=== PATIENT | male | born 1935 | race Asian ===

== ENCOUNTER 2021-06-08 21:57 | Inpatient (IN) | payer MEDICARE, OTHER ==
[~2021-06-08] VITALS: Ht 165.1 cm; Wt 63.5 kg
[2021-06-08] MEDS ORDERED: IV NORMAL SALINE 1000 ML BAG IV ONE (23:15)
[2021-06-08 23:45] LABS: HEMATOCRIT 21.5 % (36.7-47.1); MEAN CORPUSCULAR HEMOGLOBIN 30.3 uug (23.8-33.4); MEAN CORPUSCULAR VOLUME 92.1 fL (73.0-96.2); PLATELET COUNT (AUTO) 136 K/uL (152-348)
[2021-06-08 23:56] LABS: CARBON DIOXIDE 33 mmol/L (21-32); CHLORIDE 106 mmol/L (98-107); CREATININE 2.3 mg/dL (0.6-1.3); GLUCOSE 62 mg/dL (74-106); POTASSIUM 3.7 mmol/L (3.5-5.1); UREA NITROGEN, BLOOD 28 mg/dL (7-18)
[2021-06-09 00:02] LABS: ALANINE AMINOTRANSFERASE 112 U/L (16-63); ALKALINE PHOSPHATASE 104 U/L (50-136); ASPARTATE AMINOTRANSFERASE 93 U/L (15-37); BILIRUBIN,TOTAL 1.3 mg/dL (0.2-1.0); TOTAL PROTEIN, SERUM 5.8 g/dL (6.4-8.2)
[2021-06-09] MEDS ORDERED: ASPIRIN 81 MG TAB.CHEW PO ONE (02:00)
[2021-06-09 02:19] LABS: *BILIRUBIN,URIN NEGATIVE (NEGATIVE); *CLARITY,URINE CLEAR (CLEAR); *COLOR,URINE YELLOW (YELLOW); *KETONES,URINE NEGATIVE (NEGATIVE); LEUKOCYTE ESTERASE ,URINE NEGATIVE (NEGATIVE); NITRITE, URINE NEGATIVE (NEGATIVE); UGLUCOSE NEGATIVE (NEGATIVE)
[2021-06-09 02:22] LABS: *BLOOD, URINE TRACE (NEGATIVE)
[2021-06-09 02:27] LABS: BACTERIA,URINE NONE SEEN /HPF (NONE SEEN); SQUAMOUS EPITHELIAL CELL,UR FEW /HPF (NONE SEEN); WBC,URINE 0-3 /HPF (0-3)
[2021-06-09] MEDS ORDERED: METO25TA6 PO (02:46)
[2021-06-09] MEDS ORDERED: [UNRECOGNIZED DRUG - CODE] PO (02:46)
[2021-06-09] MEDS ORDERED: LEVO75TA7 PO (02:46)
[2021-06-09] MEDS ORDERED: BUDE10.2 INH (02:46)
[2021-06-09] MEDS ORDERED: LIDO30AD10 TD (02:46)
[2021-06-09] MEDS ORDERED: PROCTO-MED PR (02:46)
[2021-06-09] MEDS ORDERED: NYST5ORA PO (02:46)
[2021-06-09] MEDS ORDERED: ESCI10TA PO (02:46)
[2021-06-09] MEDS ORDERED: CALC-1310 PO (02:46)
[2021-06-09] MEDS ORDERED: ASPI81TA31 PO (02:46)
[2021-06-09] MEDS ORDERED: OMAL150V SQ (02:46)
[2021-06-09] MEDS ORDERED: ENOX40DI SQ (02:46)
[2021-06-09] MEDS ORDERED: hydroxyzine PO (02:46)
[2021-06-09] MEDS ORDERED: RIVA20TA PO (02:46)
[2021-06-09] MEDS ORDERED: OMEP40CA21 PO (02:46)
[2021-06-09] MEDS ORDERED: CHOL200013 (02:46)
[2021-06-09] MEDS ORDERED: ONDA-104 PO (02:46)
[2021-06-09] MEDS ORDERED: CARB1DRO OP (02:46)
[2021-06-09] MEDS ORDERED: CETI-90 PO (02:46)
[2021-06-09] MEDS ORDERED: POLY17PO4 PO (02:46)
[2021-06-09] MEDS ORDERED: CYCL30DR OP (02:46)
[2021-06-09] MEDS ORDERED: ATOR20TA PO (02:46)
[2021-06-09] MEDS ORDERED: LOSA25TA27 PO (02:46)
[2021-06-09] MEDS ORDERED: HYDR-3972 PO (02:46)
[2021-06-09] MEDS ORDERED: FLUT16SP16 NS (02:46)
[2021-06-09] MEDS ORDERED: DEXA0.5E PO (02:46)
[2021-06-09] MEDS ORDERED: AMYL1CAP58 PO (02:46)
[2021-06-09] MEDS ORDERED: PANT40TA49 PO (02:46)
[2021-06-09] MEDS ORDERED: ASPIRIN 81 MG TAB.CHEW ONE (02:55)
[2021-06-09] MEDS ORDERED: IV NS 1000 ML 1,000 ML IV ONE (03:30)
[2021-06-09] MEDS ORDERED: MAGNESIUM HYDROXIDE 30 ML LIQUID UDC PO PRN (03:30)
[2021-06-09] MEDS ORDERED: Z GUARD REMEDY PASTE 57 GM TUBE TOP PRN (03:30)
[2021-06-09] MEDS ORDERED: ACETAMINOPHEN 325 MG TABLET PO PRN (03:30)
[2021-06-09] MEDS ORDERED: ONDANSETRON 4 MG/2 ML VIAL IV PRN (03:30)
[2021-06-09] MEDS ORDERED: VANCOMYCIN IV 1,250 MG in IV DEXTROSE 5% 250 ML IV ONE (04:30)
[2021-06-09] MEDS ORDERED: PIPERACILLIN SODIUM/TAZOBACTAM 3.375 G in IV DEXTROSE 5% 50 ML IV ONE (04:30)
[2021-06-09] MEDS ORDERED: VANCOMYCIN 1000 MG VIAL ONE (05:05)
[2021-06-09] MEDS ORDERED: VANCOMYCIN HCL 500 MG VIAL ONE (05:05)
[2021-06-09] MEDS ORDERED: PIPERACILLIN/TAZOBACTAM/D5W 50 ML IV ONE (05:05)
[2021-06-09 09:02] LABS: CARBON DIOXIDE 32 mmol/L (21-32); CHLORIDE 106 mmol/L (98-107); CREATININE 2.1 mg/dL (0.6-1.3); GLUCOSE 69 mg/dL (74-106); MAGNESIUM 1.9 mg/dL (1.8-2.4); PHOSPHOROUS 3.7 mg/dL (2.5-4.9); POTASSIUM 3.4 mmol/L (3.5-5.1); UREA NITROGEN, BLOOD 30 mg/dL (7-18)
[2021-06-09 09:12] LABS: MEAN CORPUSCULAR HEMOGLOBIN 30.7 uug (23.8-33.4)
[2021-06-09 09:14] LABS: HEMATOCRIT 22.1 % (36.7-47.1); MEAN CORPUSCULAR VOLUME 92.4 fL (73.0-96.2); PLATELET COUNT (AUTO) 127 K/uL (152-348)
[2021-06-09 09:41] LABS: CHOLESTEROL 103 mg/dL (<200); HDL CHOLESTEROL 26 mg/dL (40-60); TRIGLYCERIDES 67 MG/DL (30-150)
[2021-06-09] MEDS ORDERED: IV D5/ 0.9% NACL 1,000 ML IV PRN (10:45)
[2021-06-09] MEDS ORDERED: POTASSIUM CHLORIDE 20 MEQ TAB.PRT.SR PO ONE (11:30)
[2021-06-09] MEDS: PIPERACILLIN SODIUM/TAZOBACTAM 3.375 G in IV DEXTROSE 5% 50 ML IV SCH ×3 (12:00→23:14)
[2021-06-09] MEDS ORDERED: POTASSIUM CHLORIDE 20 MEQ TAB.PRT.SR ONE (13:41)
[2021-06-09 16:00] VITALS: BP 106/56
--- NOTE | 2021-06-09 18:59 | NUR ---
admitted patient to telemetry accompanied by dtr dx. acute respiratory distress. sinus rhythm with first deg av block. no resp distress. spo2 99% on 4 Lpm nasal cannula. able to understand simple setswana. per randy webber who spoke with dtr, ok to intubate but no compressions. pt presents with very fragile skin, bilateral upper extremities bruising and multiple skin tears. routine admission done. pt is put on air loss mattress. kept comfortable. bed at lowest and locked siderails up x2. needs attended. endorsed. randy webber aware.
[2021-06-09 20:17] VITALS: BP 121/64
[2021-06-10 00:06] VITALS: BP 125/60
[2021-06-10 04:13] VITALS: BP 130/75
[2021-06-10] MEDS: PIPERACILLIN SODIUM/TAZOBACTAM 3.375 G in IV DEXTROSE 5% 50 ML IV SCH ×4 (05:13→23:38)
[2021-06-10 08:08] LABS: HEMATOCRIT 22.1 % (36.7-47.1); MEAN CORPUSCULAR HEMOGLOBIN 30.8 uug (23.8-33.4); MEAN CORPUSCULAR VOLUME 92.8 fL (73.0-96.2); PLATELET COUNT (AUTO) 147 K/uL (152-348)
[2021-06-10 08:40] LABS: CARBON DIOXIDE 32 mmol/L (21-32); CHLORIDE 108 mmol/L (98-107); GLUCOSE 74 mg/dL (74-106); MAGNESIUM 1.9 mg/dL (1.8-2.4); PHOSPHOROUS 2.9 mg/dL (2.5-4.9); POTASSIUM 3.9 mmol/L (3.5-5.1); UREA NITROGEN, BLOOD 26 mg/dL (7-18)
[2021-06-10] MEDS: FUROSEMIDE 20 MG/2 ML VIAL IV SCH (10:16)
[2021-06-10 12:00] VITALS: BP 114/60
[2021-06-10] MEDS ORDERED: VANCOMYCIN IV 500 MG in IV DEXTROSE 5% 100 ML IV SCH (12:00)
[2021-06-10 16:00] VITALS: BP 114/63
[2021-06-10] MEDS ORDERED: CETIRIZINE HCL 10 MG TABLET PO SCH (17:00)
[2021-06-10] MEDS: DOCUSATE SODIUM 250 MG CAPSULE PO SCH (17:04)
[2021-06-10 20:00] VITALS: BP 112/61
[2021-06-11] VITALS: BP 116/62
[2021-06-11 04:00] VITALS: BP 116/64
--- NOTE | 2021-06-11 06:06 | NUR ---
Slept intermittently throughout the night. No distress noted. Sinus loren on monitor. Denies pain or SOB. No other issues or concerns at this time, will endorse to day shift.
[2021-06-11 06:21] LABS: HEMATOCRIT 24.8 % (36.7-47.1); MEAN CORPUSCULAR HEMOGLOBIN 30.5 uug (23.8-33.4); MEAN CORPUSCULAR VOLUME 93.7 fL (73.0-96.2); PLATELET COUNT (AUTO) 156 K/uL (152-348)
[2021-06-11] MEDS: PIPERACILLIN SODIUM/TAZOBACTAM 3.375 G in IV DEXTROSE 5% 50 ML IV SCH ×4 (06:26→23:29)
[2021-06-11] MEDS: LEVOTHYROXINE SODIUM 75 MCG TABLET PO SCH (06:26)
[2021-06-11 06:27] LABS: CARBON DIOXIDE 32 mmol/L (21-32); CHLORIDE 108 mmol/L (98-107); CREATININE 1.9 mg/dL (0.6-1.3); GLUCOSE 90 mg/dL (74-106); POTASSIUM 3.9 mmol/L (3.5-5.1); UREA NITROGEN, BLOOD 22 mg/dL (7-18)
[2021-06-11 06:28] LABS: MAGNESIUM 1.9 mg/dL (1.8-2.4); PHOSPHOROUS 2.6 mg/dL (2.5-4.9)
[2021-06-11] MEDS: CALCIUM CARBONATE 600 MG TABLET PO SCH (08:07)
[2021-06-11] MEDS: PANTOPRAZOLE SODIUM 40 MG TABLET.DR PO SCH (08:07)
[2021-06-11] MEDS: CETIRIZINE HCL 10 MG TABLET PO SCH (08:07)
[2021-06-11] MEDS: DOCUSATE SODIUM 250 MG CAPSULE PO SCH ×2 (08:07→16:17)
[2021-06-11] MEDS: MIRALAX 17 GM POWD.PACK PO SCH (08:07)
[2021-06-11] MEDS: ESCITALOPRAM OXALATE 10 MG TABLET PO SCH (08:07)
[2021-06-11] MEDS: FUROSEMIDE 20 MG/2 ML VIAL IV SCH (08:12)
[2021-06-11 11:23] VITALS: BP 96/48
[2021-06-11] MEDS ORDERED: VANCOMYCIN IV 750 MG in IV DEXTROSE 5% 250 ML IV SCH (12:00)
--- NOTE | 2021-06-11 12:24 | NUR ---
WOUND CARE CONSULT: REVIEWED CHART, NURSING DOCUMENTATION AND PHOTOS WHICH INDICATE LEFT UPPER BACK SKIN TEAR, FRAGILE SKIN, DISCOLORATION TO EXTREMITIES, CALLUSES/SCARS TO FEET, RASH TO SACRAL/BUTTOCKS AREA WELL GROIN FOLDS AND PERINEUM, PRESENT ON ADMISSION. RECOMMENDATIONS MADE FOR SKIN PROTECTION AND WOUND CARE. DISCUSSED WITH NURSING STAFF. MD IN AGREEMENT WITH PLAN OF CARE.
--- NOTE | 2021-06-11 15:00 | NUR ---
paracentesis done by radiologist doc 1500 litter blood color out .send the fluids to lab
[2021-06-11] MEDS: CLOTRIMAZOLE 1% CREAM 30 GM TUBE TOP SCH (16:17)
[2021-06-11 16:21] VITALS: BP 110/60
[2021-06-11 20:20] VITALS: BP 102/57
[2021-06-12 00:15] VITALS: BP 127/62
[2021-06-12 04:25] VITALS: BP 102/33
--- NOTE | 2021-06-12 05:24 | NUR ---
Slept throughout the night. No distress noted. Pt desatted to 85% on 2L. Placed on 3L, satting at 93%. IV site intact. Sinus loren on Tele. No other issues or concerns at this time, will endorse to day shift.
[2021-06-12] MEDS: LEVOTHYROXINE SODIUM 75 MCG TABLET PO SCH (06:11)
[2021-06-12] MEDS: PIPERACILLIN SODIUM/TAZOBACTAM 3.375 G in IV DEXTROSE 5% 50 ML IV SCH ×3 (06:12→18:06)
[2021-06-12 08:17] LABS: HEMATOCRIT 23.1 % (36.7-47.1); MEAN CORPUSCULAR HEMOGLOBIN 30.6 uug (23.8-33.4); MEAN CORPUSCULAR VOLUME 93.5 fL (73.0-96.2); PLATELET COUNT (AUTO) 143 K/uL (152-348)
[2021-06-12 08:22] LABS: CARBON DIOXIDE 36 mmol/L (21-32); CHLORIDE 110 mmol/L (98-107); GLUCOSE 75 mg/dL (74-106); PHOSPHOROUS 3.2 mg/dL (2.5-4.9); POTASSIUM 4.2 mmol/L (3.5-5.1); UREA NITROGEN, BLOOD 24 mg/dL (7-18)
[2021-06-12 08:52] LABS: *OCCULT BLOOD STOOL NEGATIVE (NEGATIVE)
[2021-06-12] MEDS: MIRALAX 17 GM POWD.PACK PO SCH (09:00)
[2021-06-12] MEDS: DOCUSATE SODIUM 250 MG CAPSULE PO SCH ×2 (09:00→16:34)
[2021-06-12 09:45] VITALS: BP 110/61
[2021-06-12] MEDS: PANTOPRAZOLE SODIUM 40 MG TABLET.DR PO SCH (09:59)
[2021-06-12] MEDS: ESCITALOPRAM OXALATE 10 MG TABLET PO SCH (09:59)
[2021-06-12] MEDS: FUROSEMIDE 20 MG TABLET PO SCH (09:59)
[2021-06-12] MEDS: CETIRIZINE HCL 10 MG TABLET PO SCH (09:59)
[2021-06-12] MEDS: CALCIUM CARBONATE 600 MG TABLET PO SCH (09:59)
[2021-06-12] MEDS: CLOTRIMAZOLE 1% CREAM 30 GM TUBE TOP SCH ×2 (10:00→16:34)
--- NOTE | 2021-06-12 11:32 | NUR ---
Pt is a/o x 2. He is able to communicate when he needs a diaper change. Pt is cooperative with care and medications. Medications given to pt crushed into applesauce. Colace and Miralax were held this am due to pt having loose stool. Slight redness still present in groin folds, lotrimin has been applied. Pt's vitals are stable within normal limits no signs of acute distress or discomfort at this time. will continue to monitor.
[2021-06-12 12:02] VITALS: BP 105/61
[2021-06-12] MEDS ORDERED: VANCOMYCIN IV 1,000 MG in IV DEXTROSE 5% 250 ML IV SCH (13:00)
[2021-06-12 16:24] VITALS: BP 106/57
--- NOTE | 2021-06-12 18:49 | NUR ---
Pt is intermittently awake. Alert/oriented to own ability, speaks very little [place],. I spoke with daughters Magy and Sloane today and they were able to tell me his preferences in spacing out his meals. Notified MANUAL LATHE MACHINIST to leave certain items for pt to snack on later. Pt's dentures were washed and brushed and placed in his mouth prior to meals. Pt is cooperative with care and medications. All PO medications given crushed into applesauce. IV access is patent and intact. Comfort measures provided, call light in reach. No signs of acute distress or discomfort. Will endorse pt to shift commander RN.
[2021-06-12 19:56] VITALS: BP 91/57
--- NOTE | 2021-06-12 20:00 | NUR ---
RECEIVED PATIENT ASLEEP IN BED. EASILY AROUSABLE AND ALERT. ON O2 3L NC SATING 95%. NO S/S OF ANY PAIN OR DISCOMFORT. NO S/S OF ANY RESP. DISTRESS. CALL LIGHT IN REACH. BED ALARM ON. ALL NEED ATTENDED. WILL CONTINUE TO MONITOR AND ASSESS.
--- NOTE | 2021-06-12 21:07 | NUR ---
PATIENT ON TELE SR WITH 1ST DEGREE AV BLOCK. ALL NEEDS ATTENDED. WILL CONTINUE TO MONITOR AND ASSESS.
[2021-06-13 00:25] VITALS: BP 106/56
[2021-06-13] MEDS: PIPERACILLIN SODIUM/TAZOBACTAM 3.375 G in IV DEXTROSE 5% 50 ML IV SCH ×2 (00:50→05:58)
[2021-06-13 05:05] VITALS: BP 130/61
[2021-06-13] MEDS: LEVOTHYROXINE SODIUM 75 MCG TABLET PO SCH (06:01)
--- NOTE | 2021-06-13 06:37 | NUR ---
PATIENT ASLEEP IN BED. SLEPT WELL THROUGHOUT THE NIGHT. VS WNL. CONTINUED ON TELE SR WITH 1ST DEGREE AV BLOCK. ALL NEEDS ATTENDED. BED ALARM ON. WILL CONTINUE TO MONITOR AND ASSESS.
[2021-06-13 07:37] LABS: HEMATOCRIT 23.2 % (36.7-47.1); MEAN CORPUSCULAR HEMOGLOBIN 30.4 uug (23.8-33.4); MEAN CORPUSCULAR VOLUME 93.8 fL (73.0-96.2); PLATELET COUNT (AUTO) 139 K/uL (152-348)
[2021-06-13 07:49] LABS: CARBON DIOXIDE 35 mmol/L (21-32); CHLORIDE 107 mmol/L (98-107); GLUCOSE 67 mg/dL (74-106); PHOSPHOROUS 3.2 mg/dL (2.5-4.9); POTASSIUM 3.8 mmol/L (3.5-5.1); UREA NITROGEN, BLOOD 24 mg/dL (7-18)
[2021-06-13] MEDS: PANTOPRAZOLE SODIUM 40 MG TABLET.DR PO SCH (08:43)
[2021-06-13] MEDS: CALCIUM CARBONATE 600 MG TABLET PO SCH (08:43)
[2021-06-13] MEDS: DOCUSATE SODIUM 250 MG CAPSULE PO SCH (08:43)
[2021-06-13] MEDS: FUROSEMIDE 20 MG TABLET PO SCH (08:43)
[2021-06-13] MEDS: CETIRIZINE HCL 10 MG TABLET PO SCH (08:43)
[2021-06-13] MEDS: MIRALAX 17 GM POWD.PACK PO SCH (08:43)
[2021-06-13] MEDS: ESCITALOPRAM OXALATE 10 MG TABLET PO SCH (08:43)
[2021-06-13] MEDS: CLOTRIMAZOLE 1% CREAM 30 GM TUBE TOP SCH (08:44)
[2021-06-13 12:00] VITALS: BP 95/47
[2021-06-13] MEDS ORDERED: CEFEPIME HCL 2 G in IV DEXTROSE 5% 100 ML IV SCH (12:00)
[2021-06-13] MEDS ORDERED: CEFE2FRO IV (13:20)
[2021-06-13] MEDS ORDERED: FURO20TA4 PO (13:25)
[2021-06-13 16:00] VITALS: BP 101/55
--- NOTE | 2021-06-13 17:00 | NUR ---
d/c patient to SNF. no distress identified. skin, photo taken in chart. report given to VINCENT Marx. Patient left via ambulance with 2 retail client solutions analyst. no concern identified. belongings list signed. patient left with stable vital signs.
== END 2021-06-13 17:00 | DRG 871 ==
LOC: ER 21:59 → TRANSITION 06-09 04:13 → TELE3 06-09 15:58
PROVIDERS: ADMIT Nurse Practitioner Acute Care; ATTEND Nurse Practitioner Acute Care
PROC: 0W9G3ZZ Drainage of Peritoneal Cavity, Percutaneous Approach (ICD-10-PCS; principal; 2021-06-11)
DX: A41.9 Sepsis, unspecified organism (principal); J18.9 Pneumonia, unspecified organism; N17.0 Acute kidney failure with tubular necrosis; J96.01 Acute respiratory failure with hypoxia; I21.4 Non-ST elevation (NSTEMI) myocardial infarction; J90 Pleural effusion, not elsewhere classified; I13.0 Hypertensive heart and chronic kidney disease with heart failure and stage 1 through stage 4 chronic kidney disease, or unspecified chronic kidney disease; R18.8 Other ascites; C78.7 Secondary malignant neoplasm of liver and intrahepatic bile duct; E78.5 Hyperlipidemia, unspecified; I27.20 Pulmonary hypertension, unspecified; Z20.822 Contact with and (suspected) exposure to COVID-19; N28.1 Cyst of kidney, acquired; I50.9 Heart failure, unspecified; N18.9 Chronic kidney disease, unspecified; J84.10 Pulmonary fibrosis, unspecified; R62.7 Adult failure to thrive; Z68.23 Body mass index [BMI] 23.0-23.9, adult; E87.6 Hypokalemia; N30.90 Cystitis, unspecified without hematuria; N32.0 Bladder-neck obstruction; D63.8 Anemia in other chronic diseases classified elsewhere; Z79.899 Other long term (current) drug therapy
CPT/HCPCS: 36415; 70030-TC; 71045; 71250; 83605; 83735; 84100; 85025; 85610; 85730; 86850; 86900; 86901; 87040; 87086; 93005; 93307; A4663; A6209; G0378; J0692; J1940; J2405; J2543; J3370; J7030; J7042; J7060; U0003